=== PATIENT | female | born 1980 | race Caucasian/White ===

== ENCOUNTER 2018-05-01 10:36 | Emergency (ER) | payer OTHER ==
[~2018-05-01] VITALS: Ht 170.2 cm; Wt 108.9 kg
[2018-05-01] MEDS ORDERED: ULTRAM 50MG TAB50 MG PO (11:55)
[2018-05-01 13:22] VITALS: BP 122/86
== END 2018-05-01 12:20 | disposition home or self-care (01) ==
LOC: ER 10:36
DX: S93.492A Sprain of other ligament of left ankle, initial encounter (principal); E03.9 Hypothyroidism, unspecified; X50.1XXA Overexertion from prolonged static or awkward postures, initial encounter; Y93.89 Activity, other specified; Y92.89 Other specified places as the place of occurrence of the external cause; Y99.8 Other external cause status